=== PATIENT | male | born 1990 | race Caucasian/White ===

== ENCOUNTER → 2019-12-12 08:27 | Outpatient (BNVA) | payer SELFPAY | PROVIDERS: Visit Provider Nurse Practitioner | DX: K58.0 Irritable bowel syndrome with diarrhea (principal); Z90.49 Acquired absence of other specified parts of digestive tract | CPT/HCPCS: 99212; Q3014 ==

== ENCOUNTER → 2022-01-20 10:53 | Outpatient (BNVA) | payer OTHER, SELFPAY | PROVIDERS: Visit Provider Physician Assistant | DX: S76.111A Strain of right quadriceps muscle, fascia and tendon, initial encounter (principal); S86.111A Strain of other muscle(s) and tendon(s) of posterior muscle group at lower leg level, right leg, initial encounter; W18.09XA Striking against other object with subsequent fall, initial encounter | CPT/HCPCS: 73564; 99204 ==

== ENCOUNTER → 2022-01-26 10:32 | Outpatient (BNVA) | payer OTHER, SELFPAY | PROVIDERS: Visit Provider Physician Assistant | DX: M23.91 Unspecified internal derangement of right knee (principal) | CPT/HCPCS: 99214 ==

== ENCOUNTER → 2022-02-02 11:04 | Outpatient (BNVA) | payer OTHER, SELFPAY | PROVIDERS: Visit Provider Physician Assistant | DX: M23.91 Unspecified internal derangement of right knee (principal) | CPT/HCPCS: 99213 ==

== ENCOUNTER 2022-02-14 13:41 | Outpatient (REF) | payer OTHER, SELFPAY ==
--- NOTE | ~2022-02-14 | MR_ITS ---
EXAMINATION: MR KNEE WITHOUT CONTRAST, RIGHT CLINICAL INFORMATION: Right knee pain COMPARISON: Radiographs 01/20/2022 TECHNIQUE: MRI of the knee without contrast was performed using routine sequences on a high-field scanner. FINDINGS: MENISCI: Medial Meniscus: Intact Lateral Meniscus: Intact LIGAMENTS: Cruciate: Intact Collateral: Intact EXTENSOR MECHANISM: Intact. Prepatellar subcutaneous edema. ARTICULAR CARTILAGE/BONE: Patellofemoral Compartment: Normal Medial Compartment: Normal Lateral Compartment: Normal JOINT FLUID AND BURSAE: Normal MR/MR knee RT wo con IMPRESSION: Prepatellar subcutaneous edema. Otherwise unremarkable. No internal derangement.
== END 2022-02-14 13:42 | disposition home or self-care (01) ==
LOC: HO.MRI 13:41
PROVIDERS: Visit Provider Internal Medicine
DX: M25.561 Pain in right knee (principal)
CPT/HCPCS: 73721

== ENCOUNTER → 2022-02-16 10:32 | Outpatient (BNVA) | payer OTHER, SELFPAY | PROVIDERS: Visit Provider Physician Assistant | DX: M23.91 Unspecified internal derangement of right knee (principal); M23.51 Chronic instability of knee, right knee | CPT/HCPCS: 99213 ==

== ENCOUNTER → 2022-03-01 09:49 | Outpatient (BNVA) | payer OTHER, SELFPAY | PROVIDERS: Visit Provider Physician Assistant Medical | DX: M25.361 Other instability, right knee (principal); M25.461 Effusion, right knee | CPT/HCPCS: 99213 ==

== ENCOUNTER → 2022-03-10 09:54 | Outpatient (BNVA) | payer OTHER, SELFPAY | PROVIDERS: Visit Provider Orthopaedic Surgery | DX: M70.41 Prepatellar bursitis, right knee (principal) | CPT/HCPCS: 20610; 99202; J1100 ==

== ENCOUNTER 2022-03-22 07:00 | Outpatient (RCR) | payer OTHER, SELFPAY ==
--- NOTE | 2022-02-24 07:59 | MHC.PT.EP ---
[facility] [place] Office [place] [facility] [place] Office [address] [phone] F: [phone] F: [phone] F: [phone] F: [phone] Physical Therapy Plan of Care Date of Evaluation: Date of Surgery: none Diagnosis: R knee derangement Assessment: Patient is a 32 year old R handed male who presents with s/s consistent with R knee pain, R knee derangement. 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 Patient past medical history includes L patellar fracture. Current impairments include pain, posture, ROM, strength, activity tolerance and functional mobility. Functional limitations include decreased ability to walk, stand, lift, kneel, squat, carry, sit, and negotiate stairs. Patient is motivated with good rehab potential. Skilled PT will address impairments and functional limitations in order to achieve goals. Frequency and Duration: The patient will be seen 2x/week for 5 weeks Short Term Goals: I with HEP - 2weeks AROM WNL - 3 weeks No evidence of swelling - 3 weeks Jail Goals: Quad set normal, 4+/5 flex/ext strength - 5 weeks LEFS 68/80 - 5 weeks Return of PLOF pain free - 5 weeks Treatment Plan: Modalities to reduce pain, spasms and effusion. Manual therapy to restore motion and function. Therapeutic exercise to improve strength and flexibility. Neuromuscular re-education for posture and balance. Therapeutic activities to return to functional activities of daily living. Electronically signed by: Saad Grant PT Please sign and return to therapist. Thank you for your referral.
--- NOTE | 2022-04-26 09:06 | MHC.PT.DC ---
[facility] [place] Office [place] Office [place] Office [address] Carlota Schultz [address] [phone] F: [phone] F: [phone] F: [phone] F: [phone] Physical Therapy Discharge Report Diagnosis: R knee derangement Date of Surgery: none Date of Evaluation: 02/24/22 Date of Discharge: 04/06/22 Treatments to Date: 7 Cancellations to Date: No Shows to Date: Discharge Status: Independent with HEP Patient Elected to Stop Discharge Summary: Pt did choose to stop PT as he was getting frustrated with progressed coupled with pain and swelling. 03/22/22: we have had difficulty with seemingly a 2 step forward, 1 step back progression with swelling limiting us from time to time. this past week, pt was limited significantly by swelling with medial joint line knee pain. we did discuss the possibility of holding PT after 2 more visits for follow up with MD.. we will assess response NV. 03/15/22: pt progressing well overall with skilled PT. reduced pain. we will likely attempt light jogging next week with d/c potentially in 2 weeks. 03/13/22: pt has been feeling better overall since [place]one and draining of knee. we will continue to progress strength. 03/08/22: pt progressing well. able to initiated single leg shuttle today. no adverse reactions. came in with minor swelling today. 03/06/22: pt was able to progress with strength portion today. continue to progress as tolerated with skilled PT NV. atrophy and swelling still present. 03/01/22: some lateral clicking at patella. addressed with progression of hip strength and IASTM to ITB. assess response and progress as tolerated. pt has been educated thoroughly on purpose of interventions. 02/27/22: we did progress and add alternate way to achieve knee flexion. we will roll ITB Nv. Patient is a 32 year old R handed male who presents with s/s consistent with R knee pain, R knee derangement. 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 Patient past medical history includes L patellar fracture. Current impairments include pain, posture, ROM, strength, activity tolerance and functional mobility. Functional limitations include decreased ability to walk, stand, lift, kneel, squat, carry, sit, and negotiate stairs. Patient is motivated with good rehab potential. Skilled PT will address impairments and functional limitations in order to achieve goals. Electronically signed by: Saad Grant, PT Please sign and return to therapist. Thank you for your referral.
== END 2022-04-26 09:06 | disposition home or self-care (01) ==
LOC: HO.PTCHIC 07:00
PROVIDERS: Visit Provider Physician Assistant Medical
DX: M23.91 Unspecified internal derangement of right knee (principal); M23.51 Chronic instability of knee, right knee
CPT/HCPCS: 97110; 97140; 97161

== ENCOUNTER → 2022-03-31 15:45 | Outpatient (BNVA) | payer OTHER, SELFPAY | PROVIDERS: Visit Provider Physician Assistant | DX: T15.02XA Foreign body in cornea, left eye, initial encounter (principal) | CPT/HCPCS: 92002; 99203 ==

== ENCOUNTER → 2022-05-08 08:31 | Outpatient (BNVA) | payer OTHER, SELFPAY | PROVIDERS: Visit Provider Orthopaedic Surgery | DX: M70.41 Prepatellar bursitis, right knee (principal) | CPT/HCPCS: 99212 ==

== ENCOUNTER → 2022-07-24 09:23 | Outpatient (BNVA) | payer OTHER, SELFPAY | PROVIDERS: Visit Provider Orthopaedic Surgery | DX: M70.41 Prepatellar bursitis, right knee (principal) | CPT/HCPCS: 20610; 99212; J1100 ==

== ENCOUNTER 2022-09-04 09:14 | Outpatient (AMB) | payer OTHER, SELFPAY ==
[2022-09-04 09:18] VITALS: BMI 26.5
--- NOTE | 2022-09-04 09:18 | A.OFFVIS_ITS ---
Intake Vital Signs 09/04/22 09:18 Height 5 ft 11 in Weight 190 lb BMI 26.5 Intake Visit Reasons: OV-Rt Knee Bursitis - DOI 01/20/22 Intake Note: Mik a 32 year old male presents today for a follow up of right knee bursitis s/p injury on 01/20/22. Patient reports last injection on 07/24/22 provided minimal relief. He continues to have medial knee pain and is now experiencing tightness/pressure behind his knee. Allergies No Known Allergies [No Known Allergies*] Allergy (Unverified 09/04/22 09:21) HPI OV-Rt Knee Bursitis - DOI 01/20/22 HPI Details iMk is a 32 year old man with right knee bursitis, who presents for a follow-up of his W/C injury, DOI: 01/20/22. He was last injected on 07/24/22, with good relief, and has completed a course of PT. He continues to do at-home exercises. As of 05/08/22 he was working full duty with kneeling activities as tolerated. He works installing [employer]. He says his recent injection provided minimal relief, and he continues to have medial sided knee pain. He denies any pain when at rest. He has been working on resuming exercising, and he says lunges with his right leg behind him causes him severe pain. He also complains of worsening feelings of tightness or pressure in the posterior of his knee, along with a painful pinching sensation with some activity. He denies any weakness and says he is able to carry heavy loads up and down stairs at work without difficulty. [facility] Surgical History History of appendectomy Hx of endoscopy Family History Father History of high blood pressure Mother Alive and well Social History Alcohol intake: current Alcohol intake frequency: 0-2 drinks per day Current occupational status: employed Current occupation: floor install/ambidextrous Review of Systems Const All systems reviewed & are unremarkable except as noted in HPI and below Physical Exam Vital Signs: BMI result Body Mass Index 26.5 Const General: no acute distress and alert Orientation/consciousness: patient oriented x3 Neuro General: patient oriented x3 Extrem Other: Right Knee: Vague mild medial compartment TTP Otherwise unremarkable exam Psych Appearance: grossly normal Affect: normal affect Attitude: cooperative Results Reviewed Results Reviewed: I personally reviewed relevant MR images Prepatellar subcutaneous edema. Otherwise unremarkable. No internal derangement. Assessment & Plan Assessment & Plan (1) Prepatellar bursitis, right knee: Code(s): M70.41 - Prepatellar bursitis, right knee Plan: This is a 32 year old man with prepatellar bursitis of the right knee, from a twisting & falling injury at work, DOI: 01/20/22. This has resolved at this time. He has no objective evidence of internal derangement and his MRI is unremarkable. He does have a palpable pain over the anteromedial knee, possible plica. This does reproduce some of his pain. I recommend he continue activity as tolerated, take NSAIDs, and focus on stretching & strengthening exercises. He can follow up prn. Plan Scribed for Dennis Pedroza MD by Willem Agustin, medical charge entry specialist, on 09/04/22 at 9:30 AM, EST. Coding Level of Care Code Est Pt Level 3 (51502) Diagnoses Prepatellar bursitis, right knee M70.41
== END 2022-09-04 11:53 | disposition home or self-care (01) ==
PROVIDERS: Visit Provider Orthopaedic Surgery
DX: M70.41 Prepatellar bursitis, right knee (principal); M23.8X1 Other internal derangements of right knee
CPT/HCPCS: 99213

== ENCOUNTER → 2022-09-04 09:14 | Outpatient (BNVA) | payer OTHER, SELFPAY | PROVIDERS: Visit Provider Orthopaedic Surgery | DX: M70.41 Prepatellar bursitis, right knee (principal); M25.561 Pain in right knee | CPT/HCPCS: 99212 ==